=== PATIENT | male | born 1980 | race Caucasian/White ===

== ENCOUNTER 2019-04-20 09:22 | Emergency (ER) | payer SELFPAY ==
[2019-04-20 09:34] VITALS: BP 143/97
--- NOTE | 2019-04-20 09:58 | ER Document Report ---
ED Medical Screen (RME) - General Chief Complaint: Rib Pain Stated Complaint: RIB PAIN Time Seen by Provider: 04/20/19 09:55 Mode of Arrival: Ambulatory Notes: 38-year-old male presented to ED for complaint of left rib pain. 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 He states he either with the cartilage or broke a rib and now has severe pain on the left ribs. Patient is alert oriented respirations regular nonlabored speaking in full sentences. And I have greeted and performed a rapid initial assessment of this patient. A comprehensive ED assessment and evaluation of the patient, analysis of test results and completion of medical decision making process will be conducted by an additional ED providers. TRAVEL OUTSIDE OF THE [place] IN LAST 30 DAYS: No Past Medical History - Social History Chew tobacco use (# tins/day): No Frequency of alcohol use: Heavy Drug Abuse: None Physical Exam - Vital signs Vitals: Pulse Resp BP Pulse Ox 84 18 143/97 H 96 04/20/19 09:31 04/20/19 09:31 04/20/19 09:31 04/20/19 09:31 Course - Vital Signs Vital signs: Temp Pulse Resp BP Pulse Ox 84 18 143/97 H 96 04/20/19 09:31 04/20/19 09:31 04/20/19 09:31 04/20/19 09:31
--- NOTE | 2019-04-20 10:20 | RADIOLOGY REPORT (SQ) ---
EXAM DESCRIPTION: RIBS LEFT W/PA CHEST COMPLETED DATE/TIME: 04/20/2019 10:08 am REASON FOR STUDY: pain left ribs COMPARISON: None. TECHNIQUE: Frontal view of the chest and additional views of the left ribs acquired. NUMBER OF VIEWS: Three view. LIMITATIONS: None. FINDINGS: FRONTAL CXR: No pneumothorax. No pleural effusion. No atelectasis or infiltrates. RIBS: No displaced rib fractures. No lytic or blastic bony lesions. OTHER: Chronic appearing left-sided mid clavicle fracture. Questionable chronic right clavicle fract ure. IMPRESSION: No pneumothorax. No displaced rib fracture. Chronic midshaft left clavicle fracture. Questionable additional chronic midshaft right clavicle fra cture. COMMENT: SITE OF TRAUMA/COMPLAINT MARKED/STAMP COMPLETED: YES. TECHNICAL DOCUMENTATION: JOB ID: [id number] [email or web address] All Rights Reserved Reading location - IP/workstation name: [email or web address]
--- NOTE | 2019-04-20 11:06 | ER Document Report ---
HPI - HPI Time Seen by Provider: 04/20/19 09:55 Pain Level: 4 Context: Patient is a 38-year-old male who presents to the emergency department with a chief complaint of left rib pain. 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 Patient reports he was lifting and twisting at the same time. Patient reports he felt a pop to the left rib. Patient reports he was told in the past that he has had a cartilage injury and that this felt the same. Patient was concerned that he has a possible rib fracture. Patient reports that he has been drinking alcohol this morning which did seem to help with his discomfort. Patient reports he is not taking any pain medication. Patient reports the pain is worse with movement, palpation of the area, coughing or deep breathing. Patient reports he does smoke 1 pack of cigarettes per day. Past Medical History - General Information source: Patient - Social History Smoking Status: Current Every Day Smoker Chew tobacco use (# tins/day): No Frequency of alcohol use: Heavy Drug Abuse: None Family History: None Patient has suicidal ideation: No Patient has homicidal ideation: No - Past Medical History Cardiac Medical History: Reports: None Pulmonary Medical History: Reports: None EENT Medical History: Reports: None Neurological Medical History: Reports: None Endocrine Medical History: Reports: None Renal/ Medical History: Reports: None Malignancy Medical History: Reports None GI Medical History: Reports: None Musculoskeletal Medical History: Reports None Skin Medical History: Reports None Psychiatric Medical History: Reports: None Traumatic Medical History: Reports: None Infectious Medical History: Reports: None Surgical Hx: Negative Vertical Provider Document - CONSTITUTIONAL Agree With Documented VS: Yes Exam Limitations: Intoxication General Appearance: No Apparent Distress - INFECTION CONTROL TRAVEL OUTSIDE OF THE [place] IN LAST 30 DAYS: No - HEENT HEENT: Atraumatic, Normocephalic, PERRLA - NECK Neck: Normal Inspection - RESPIRATORY Respiratory: Breath Sounds Normal, No Respiratory Distress Notes: Patient has point tenderness to the left anterior and left lateral ribs. There is no ecchymosis, edema, erythema noted to the chest wall or ribs. - CARDIOVASCULAR Cardiovascular: Regular Rate, Regular Rhythm - GI/ABDOMEN Gastrointestinal: Abdomen Soft, Abdomen Non-Tender, Normal Bowel Sounds - MUSCULOSKELETAL/EXTREMETIES Musculoskeletal/Extremeties: FROM, Non-Tender, No Edema - NEURO Level of Consciousness: Awake, Alert, Appropriate - DERM Integumentary: Warm, Dry, No Rash Course - Re-evaluation Re-evalutation: 04/20/19 11:40 During my initial evaluation patient admits to drinking a multiple liquor drinks this morning. Patient reports he is an alcoholic. Patient reports that he has not taken anything for his discomfort in regards to medication. Patient reports his biggest concern is that he wanted to make sure that he did not have a fracture of his rib. I did inform the patient that his chest x-ray was negative for any acute rib fracture or puncture of the lung. I did inform him that he does have a chronic left clavicle fracture and a questionable chronic right clavicle fracture. Patient reports he is aware of this. I did inform the patient to limit his smoking or to completely quit smoking, cough and deep breathing to help prevent pneumonia due to the severity of pain when he coughs or moves. I did inform the patient to take ibuprofen as needed for his discomfort. Cool compresses to the affected site. Return if symptoms are worse. I did inform the patient that his symptoms are consistent with a muscle strain of the chest wall. I did inform him this also could be related to cartilage damage. I did inform him initially was going to give him a muscle relaxer called Robaxin. Patient reports that he was planning on taking the Robaxin and drinking alcohol. I did inform him that you are not supposed to be drinking alcohol while on this medication. Due to the patient's intoxication level I do not feel comfortable prescribing the muscle relaxer. I will give him 800 mg ibuprofen to take as needed for pain. Patient states he does not want this. - Vital Signs Vital signs: Temp Pulse Resp BP Pulse Ox 84 18 143/97 H 96 04/20/19 09:31 04/20/19 09:31 04/20/19 09:31 04/20/19 09:31 - Diagnostic Test Radiology reviewed: Reports reviewed Radiology results interpreted by me: 04/20/19 11:43 Ribs w/Chest X-Ray 04/20/19 09:58 IMPRESSION: No pneumothorax. No displaced rib fracture. Chronic midshaft left clavicle fracture. Questionable additional chronic midshaft right clavicle fracture. Discharge - Discharge Clinical Impression: Muscle strain of chest wall Qualifiers: Encounter type: initial encounter Qualified Code(s): S29.011A - Strain of muscle and tendon of front wall of thorax, initial encounter Condition: Stable Disposition: HOME, SELF-CARE Additional Instructions: *Today you are seen in the emergency department for left rib pain. We did obtain a chest x-ray which did not show any acute rib fracture. Your symptoms are consistent with a muscle strain of the chest wall. You do have a chronic left clavicle fracture as well as a questionable chronic right clavicle fracture. After discussion you state that you are aware of this. *We does recommend rest. Anti-inflammatories such as ibuprofen or Aleve. And ice packs to the area. Please continue to cough and deep breathe. If you smoke please try to limit this or quit. Muscle Strain You have strained a muscle -- torn the fibers within the muscle. This often occurs with strenuous exertion, or during an injury that suddenly stretches the muscle. The seriousness of a strain varies. Some strains heal within days, others cause problems for months. X-rays cannot show a muscle strain. X-rays are taken only if symptoms suggest that a fracture could be present. The usual treatment of a muscle strain is rest and ice packs. Sometimes, a sling, splint, or crutches may be necessary to rest the muscle. The muscle can be used again once pain subsides. Severe strains require a special exercise and stretching program to prevent permanent stiffness and disability. Your doctor will advise you if this will be necessary. Call the doctor immediately if pain or swelling becomes severe, or if numbness or discoloration develop. Muscle Relaxers Muscle relaxing medications are usually prescribed for acute muscle spasm or injury to the neck and back. They are often combined with antiinflammatory pain medication for increased relief. You may stop the muscle relaxer when the pain and stiffness have improved. Start the medication again if spasms recur. Muscle relaxers may cause drowsiness, especially with the first dose. Do not operate machinery or drive while under the effects of the medication. Most muscle relaxers last up to 24 hours. Do not combine the medication with alcohol. Prescriptions: Ibuprofen [Motrin 800 mg Tablet] 800 mg PO Q8H PRN #30 tab PRN Reason: Forms: Smoking Cessation Education
== END 2019-04-20 11:28 | disposition home or self-care (01) ==
LOC: ER 09:22
DX: S29.011A Strain of muscle and tendon of front wall of thorax, initial encounter (principal); R07.81 Pleurodynia; X50.0XXA Overexertion from strenuous movement or load, initial encounter; Y99.0 Civilian activity done for income or pay; F17.200 Nicotine dependence, unspecified, uncomplicated; F17.210 Nicotine dependence, cigarettes, uncomplicated
CPT/HCPCS: 99283